=== PATIENT | female | born 1940 | race Hispanic/Latino ===

== ENCOUNTER 2024-06-17 19:46 | Emergency (ER) | payer MEDICARE ==
[~2024-06-17] VITALS: Ht 152.4 cm; Wt 53.1 kg
[2024-06-17 20:05] VITALS: PULSE 66; RESP 16; TEMP 97.5; O2SAT 97
[2024-06-17] MEDS ORDERED: CEPHALEXIN500 MG PO (20:43)
[2024-06-17] MEDS ORDERED: PYRIDIUM100 MG PO (20:44)
== END 2024-06-17 20:53 | disposition home or self-care (01) ==
LOC: FSED 20:13
DX: R35.0 Frequency of micturition (principal); N39.0 Urinary tract infection, site not specified; I10 Essential (primary) hypertension
CPT/HCPCS: 99283